=== PATIENT | male | born 1980 | race Caucasian/White ===

== ENCOUNTER 2017-02-12 12:06 | Inpatient (IN) | payer BC, MEDICARE ==
[~2017-02-12] VITALS: Ht 177.8 cm; Wt 121.7 kg
[2017-02-12] MEDS ORDERED: GABA-529 PO (12:16)
[2017-02-12] MEDS ORDERED: MELO-273 PO (12:16)
[2017-02-12] MEDS ORDERED: PRAZ5 PO (12:16)
[2017-02-12] MEDS ORDERED: VENL-193 PO (12:16)
[2017-02-12] MEDS ORDERED: ARIP10TA14 PO (12:16)
[2017-02-12] MEDS ORDERED: LITH300C3 PO (12:16)
[2017-02-12] MEDS ORDERED: TRAZ-147 PO (12:16)
[2017-02-12] MEDS ORDERED: OMEP20 PO (12:16)
[2017-02-12] MEDS ORDERED: ONDA4 PO (12:16)
[2017-02-12] MEDS ORDERED: PROP20 PO (12:16)
[2017-02-12] MEDS ORDERED: LISI-662 PO (12:16)
[2017-02-12] MEDS ORDERED: PREG75 PO ×2 (12:16)
[2017-02-12 12:48] LABS: BASOPHILS % (AUTO) 0.4 % (0.0-2.0); EOSINOPHILS % (AUTO) 2.4 % (1.0-6.0); HEMATOCRIT 46.6 % (41-53); HEMOGLOBIN 15.8 g/dL (13.5-17.5); LYMPHOCYTES # (AUTO) 2.4 K/uL (1.0-4.8); MEAN CORPUSCULAR HEMOGLOBIN 28.9 pg (26.0-34.0); MEAN CORPUSCULAR HGB CONC 33.8 G/dL (31.0-37.0); MEAN CORPUSCULAR VOLUME 86 fL (80-100); MONOCYTES # (AUTO) 0.7 K/uL (0.1-1.0); MONOCYTES % (AUTO) 8.4 % (2.0-9.0); NEUTROPHILS # (AUTO) 4.5 K/uL (1.8-7.7); NEUTROPHILS % (AUTO) 57.8 % (40.0-70.0); PLATELET COUNT (AUTO) 264 K/uL (150-450); RED BLOOD CELL COUNT(AUTO) 5.45 MIL/uL (4.50-5.90); RED CELL DISTRIBUTION WIDTH 12.9 % (11.5-14.5); WHITE BLOOD COUNT (AUTO) 7.8 K/uL (4.5-11.0)
[2017-02-12 12:51] LABS: LITHIUM 0.78 mmol/L (0.60-1.20)
[2017-02-12 12:52] LABS: ANION GAP 10 mmol/L (8-16); CALCIUM, TOTAL 9.4 mg/dL (8.8-10.5); CARBON DIOXIDE 27 mmol/L (22-29); CHLORIDE 104 mmol/L (98-107); CREATININE 0.87 mg/dL (0.60-1.30); GLOMERULAR FILTR. RATE CALC > 60 mL/min (>60); POTASSIUM 3.8 mmol/L (3.5-5.1); SODIUM SERUM 141 mmol/L (136-145); UREA NITROGEN, BLOOD 13 mg/dL (7-18)
[2017-02-12 12:57] LABS: ALANINE AMINOTRANSFERASE 238 U/L (12-78); ALBUMIN 4.2 g/dL (3.4-5.0); ASPARTATE AMINOTRANSFERASE 38 U/L (15-37); BILIRUBIN,TOTAL 0.6 mg/dL (0.1-1.0); TOTAL PROTEIN, SERUM 7.6 g/dL (6.4-8.2)
[2017-02-12] MEDS ORDERED: LORazepam 2 MG TABLET PO PRN (15:15)
[2017-02-12] MEDS ORDERED: ZOLPIDEM TARTRATE 10 MG TABLET PO PRN (15:15)
[2017-02-12] MEDS ORDERED: HALOPERIDOL 5 MG TABLET PO PRN (15:15)
[2017-02-12 16:13] LABS: CHOL/HDL RATIO 4.4 (4.2-7.3)
[2017-02-12 18:47] VITALS: BP 130/84
[2017-02-12] MEDS: PREGABALIN 75 MG CAPSULE PO SCH (20:54)
[2017-02-13] MEDS ORDERED: IBUPROFEN 600 MG TABLET PO PRN (08:45)
[2017-02-13] MEDS ORDERED: BACITRACIN 28.4 GM OINTMENT TP PRN (08:45)
[2017-02-13] MEDS ORDERED: MAG HYDROX/AL HYDROX/SIMETH ES 30 ML SUSPENSION UDCUP PO PRN (08:45)
[2017-02-13] MEDS ORDERED: CloNIDine HCL 0.1 MG TABLET PO PRN (08:45)
[2017-02-13] MEDS ORDERED: ALBUTEROL SULFATE HFA 90 MCG/PUFF 8 GM INHALER IH PRN (08:45)
[2017-02-13] MEDS ORDERED: ONDANSETRON HCL 4 MG TABLET PO PRN (08:45)
[2017-02-13] MEDS ORDERED: BENZOCAINE/MENTHOL LOZENGE [8 LOZENGES/PACKET] MM PRN (08:45)
[2017-02-13] MEDS ORDERED: ACETAMINOPHEN 325 MG TABLET PO PRN (08:45)
[2017-02-13] MEDS ORDERED: MAGNESIUM HYDROXIDE SUSPENSION 30 ML UDCUP PO PRN (08:45)
[2017-02-13] MEDS ORDERED: PETROLATUM,WHITE 71 GM JELLY TP PRN (08:45)
[2017-02-13] MEDS ORDERED: LOPERAMIDE HCL 2 MG CAPSULE PO PRN (08:45)
[2017-02-13] MEDS: MELOXICAM 7.5 MG TABLET PO SCH (09:10)
[2017-02-13] MEDS: LISINOPRIL 20 MG TABLET PO SCH (09:10)
[2017-02-13] MEDS: PREGABALIN 75 MG CAPSULE PO SCH ×2 (09:10→20:15)
[2017-02-13] MEDS: OMEPRAZOLE 20 MG CAPSULE PO SCH ×2 (09:10→16:46)
[2017-02-13] MEDS: PROPRANOLOL HCL 20 MG TABLET PO SCH ×2 (09:10→17:00)
[2017-02-13 09:19] VITALS: BP 143/57
[2017-02-13 16:42] VITALS: BP 127/50
[2017-02-13 16:44] VITALS: BP 127/50
[2017-02-13] MEDS: RisperiDONE 2 MG TABLET PO SCH (20:52)
[2017-02-13] MEDS: LITHIUM CARBONATE 300 MG CAPSULE PO SCH (20:52)
[2017-02-14 08:31] VITALS: BP 124/76
[2017-02-14] MEDS: PROPRANOLOL HCL 20 MG TABLET PO SCH ×2 (09:23→16:24)
[2017-02-14] MEDS: LISINOPRIL 20 MG TABLET PO SCH (09:23)
[2017-02-14] MEDS: OMEPRAZOLE 20 MG CAPSULE PO SCH ×2 (09:24→16:24)
[2017-02-14] MEDS: RisperiDONE 2 MG TABLET PO SCH ×2 (09:24→16:24)
[2017-02-14] MEDS: PREGABALIN 75 MG CAPSULE PO SCH ×2 (09:24→20:46)
[2017-02-14] MEDS: LITHIUM CARBONATE 300 MG CAPSULE PO SCH ×3 (09:24→16:24)
[2017-02-14] MEDS: MELOXICAM 7.5 MG TABLET PO SCH (09:24)
[2017-02-14 16:26] VITALS: BP 141/66
[2017-02-14] MEDS ORDERED: VENL-67 PO (20:42)
[2017-02-15 04:07] LABS: HEPATITIS Bs ANTIGEN SCREEN P Negative (Negative); HEPATITIS C AB SCREEN <0.1 s/co ratio (0.0-0.9)
[2017-02-15 08:56] VITALS: BP 136/65
[2017-02-15] MEDS: PROPRANOLOL HCL 20 MG TABLET PO SCH ×2 (09:29→16:15)
[2017-02-15] MEDS: LITHIUM CARBONATE 300 MG CAPSULE PO SCH ×3 (09:30→16:15)
[2017-02-15] MEDS: PREGABALIN 75 MG CAPSULE PO SCH ×2 (09:30→20:13)
[2017-02-15] MEDS: LISINOPRIL 20 MG TABLET PO SCH (09:30)
[2017-02-15] MEDS: RisperiDONE 2 MG TABLET PO SCH ×2 (09:30→16:15)
[2017-02-15] MEDS: MELOXICAM 7.5 MG TABLET PO SCH (09:30)
[2017-02-15] MEDS: OMEPRAZOLE 20 MG CAPSULE PO SCH ×2 (09:30→16:15)
[2017-02-15 18:17] VITALS: BP 113/68
[2017-02-16 03:08] VITALS: BP 111/65
[2017-02-16 08:27] VITALS: BP 111/81
[2017-02-16] MEDS: PREGABALIN 75 MG CAPSULE PO SCH ×2 (09:07→20:47)
[2017-02-16] MEDS: PROPRANOLOL HCL 20 MG TABLET PO SCH ×2 (09:08→16:44)
[2017-02-16] MEDS: RisperiDONE 2 MG TABLET PO SCH ×2 (09:08→16:45)
[2017-02-16] MEDS: MELOXICAM 7.5 MG TABLET PO SCH (09:08)
[2017-02-16] MEDS: OMEPRAZOLE 20 MG CAPSULE PO SCH ×2 (09:08→16:45)
[2017-02-16] MEDS: LITHIUM CARBONATE 300 MG CAPSULE PO SCH ×3 (09:08→16:45)
[2017-02-16] MEDS: LISINOPRIL 20 MG TABLET PO SCH (09:09)
[2017-02-16 22:18] VITALS: BP 142/66
[2017-02-17 04:30] VITALS: BP 109/77
[2017-02-17] MEDS: RisperiDONE 2 MG TABLET PO SCH ×2 (08:08→16:24)
[2017-02-17] MEDS: LISINOPRIL 20 MG TABLET PO SCH (08:08)
[2017-02-17] MEDS: OMEPRAZOLE 20 MG CAPSULE PO SCH ×2 (08:08→16:24)
[2017-02-17] MEDS: LITHIUM CARBONATE 300 MG CAPSULE PO SCH ×3 (08:09→16:24)
[2017-02-17] MEDS: PROPRANOLOL HCL 20 MG TABLET PO SCH ×2 (08:09→16:24)
[2017-02-17] MEDS: MELOXICAM 7.5 MG TABLET PO SCH (08:09)
[2017-02-17] MEDS: PREGABALIN 75 MG CAPSULE PO SCH (08:09)
[2017-02-17 09:45] VITALS: BP 108/67
[2017-02-17] MEDS ORDERED: RISP2 PO (17:23)
[2017-02-17] MEDS ORDERED: LITH300C3 PO (17:24)
== END 2017-02-17 17:45 | disposition home or self-care (01) | DRG 885 ==
LOC: EMS 12:06 → EEVIPCON 12:06 → 3EX 16:10
PROVIDERS: ADMIT Psychiatry & Neurology Psychiatry; ATTEND Psychiatry & Neurology Psychiatry
DX: F25.0 Schizoaffective disorder, bipolar type (principal); R45.851 Suicidal ideations; R74.0 Nonspecific elevation of levels of transaminase and lactic acid dehydrogenase [LDH]; I10 Essential (primary) hypertension; F12.90 Cannabis use, unspecified, uncomplicated; F41.9 Anxiety disorder, unspecified; M48.00 Spinal stenosis, site unspecified; F17.210 Nicotine dependence, cigarettes, uncomplicated; K21.9 Gastro-esophageal reflux disease without esophagitis; M54.9 Dorsalgia, unspecified; G89.4 Chronic pain syndrome; G47.00 Insomnia, unspecified; E66.9 Obesity, unspecified; F60.9 Personality disorder, unspecified; Z88.0 Allergy status to penicillin; Z91.5 Personal history of self-harm; Z88.8 Allergy status to other drugs, medicaments and biological substances; Z68.38 Body mass index [BMI] 38.0-38.9, adult
CPT/HCPCS: 80074; 82306; 84443; 87081; 99285; G0480